=== PATIENT | male | born 1990 | race African-American/Black ===

== ENCOUNTER 2016-09-23 22:44 | Emergency (ER) | payer SELFPAY | END 2016-09-24 00:47 | disposition left against medical advice (07) | LOC: ER 22:44 | DX: N50.89 Other specified disorders of the male genital organs (principal) ==

== ENCOUNTER 2016-09-24 00:49 | Emergency (ER) | payer MEDICAID ==
[~2016-09-24] VITALS: Ht 182.9 cm; Wt 82.0 kg
[2016-09-24 01:45] VITALS: BP 135/99
== END 2016-09-24 03:22 | disposition home or self-care (01) ==
LOC: ER 00:50
DX: A63.0 Anogenital (venereal) warts (principal); J45.909 Unspecified asthma, uncomplicated; I10 Essential (primary) hypertension; F12.10 Cannabis abuse, uncomplicated
CPT/HCPCS: 99281

== ENCOUNTER 2017-01-04 14:05 | Emergency (ER) | payer MEDICAID ==
[~2017-01-04] VITALS: Ht 182.9 cm; Wt 82.0 kg
[2017-01-04 14:46] VITALS: BP 143/89
== END 2017-01-04 17:35 | disposition left against medical advice (07) ==
LOC: ER 14:05
DX: Z53.21 Procedure and treatment not carried out due to patient leaving prior to being seen by health care provider (principal); F17.210 Nicotine dependence, cigarettes, uncomplicated